=== PATIENT | female | born 1985 | race Caucasian/White ===

== ENCOUNTER 2016-03-14 02:00 | Inpatient (IN) | payer BC ==
[~2016-03-14] VITALS: Ht 162.6 cm; Wt 72.7 kg
[~2016-03-14 02:00] MED LIST: PRENTAB26 PO
[2016-03-14] MEDS ORDERED: LACTATED RINGER'S 1000ML 1,000 ML IV SCH (02:32)
[2016-03-14] MEDS ORDERED: LACTATED RINGER'S 1000ML 1,000 ML IV PRN (02:32)
[2016-03-14] MEDS ORDERED: PENICILLIN G POTASSIUM IV 6 MU in DEXTROSE 5% 250ML 250 ML IV ONE (02:45)
[2016-03-14] MEDS ORDERED: PENICILLIN G POTASSIUM IV 3 MU in DEXTROSE 5% 100ML 100 ML IV PRN (02:45)
[2016-03-14 02:52] LABS: HEMATOCRIT 33.7 % (37-47); MEAN CELL VOLUME 97.4 fL (80-100); MEAN CORPUSCULAR HEMOGLOBIN 34.7 pg (25-34); MEAN CORPUSCULAR HGB CONC 35.6 g/dl (32-36); MEAN PLATELET VOLUME 11.2 fL (7.4-10.4); PLATELET COUNT 131 K/uL (130-400); RED BLOOD COUNT 3.46 M/uL (4.2-5.4); WHITE BLOOD COUNT 9.98 K/uL (4.8-10.8)
[2016-03-14] MEDS ORDERED: EpHEDrine SULFATE INJ 50 MG/ML AMP ONE (03:27)
[2016-03-14] MEDS ORDERED: BUPIVACAINE 0.25% 30 ML VIAL ONE (03:27)
[2016-03-14] MEDS ORDERED: FENTANYL 2MCG/ML ROPIV 1.25MG/ML 100ML BAG EPI ONE (03:27)
[2016-03-14] MEDS ORDERED: FENTANYL CITRATE INJ 50 MCG/1 ML 2 ML VIAL ONE (03:28)
[2016-03-14] MEDS ORDERED: NALOXONE HCL INJ 1 MG in SODIUM CHLORIDE 0.9% 1000ML 1,000 ML IV PRN (04:22)
[2016-03-14] MEDS ORDERED: LACTATED RINGER'S 1000ML 500 ML IV PRN ×2 (04:22→05:30)
[2016-03-14] MEDS ORDERED: NALOXONE HCL INJ 0.4 MG/1 ML VIAL/CARP IV PRN (04:30)
[2016-03-14] MEDS ORDERED: FENTANYL 2MCG/ML ROPIV 1.25MG/ML 100ML BAG EPI PRN (04:30)
[2016-03-14] MEDS ORDERED: NALBUPHINE HCL INJ 10 MG/ML AMP IV PRN (04:30)
[2016-03-14] MEDS ORDERED: ONDANSETRON INJ 2 MG/ML 2 ML VIAL IV PRN (04:30)
[2016-03-14] MEDS ORDERED: EpHEDrine SULFATE INJ 50 MG/ML AMP IV PRN (04:30)
[2016-03-14] MEDS ORDERED: DiphenhydrAMINE HCL 50 MG/ML VIAL IV PRN (04:30)
[2016-03-14 05:05] VITALS: Ht 162.6 cm; Wt 72.7 kg
[2016-03-14] MEDS ORDERED: OXYTOCIN 30 UNITS/500ML NSS IV PRN ×2 (05:30→09:45)
--- NOTE | 2016-03-14 05:41 | HISTORY & PHYSICAL EXAMINATION ---
DATE OF ADMISSION: 03/14/2016 HISTORY OF PRESENT ILLNESS: The patient is a 30-year-old G2, P1, due date 03/23/2016, making her 38 weeks and 5 days today who presented to labor and delivery with spontaneous rupture of membranes at 1:00 a.m. on 03/14/2016. On arrival at labor and delivery, she has no shortness of breath, no chills, no fever and she is grossly ruptured. Bedside ultrasound shows a cephalic presentation. The patient is 3 cm dilated, 90% effaced and -2. She has irregular contractions. COURSE: Has been unremarkable. LABS: Blood type O positive, antibody negative, rubella immune, RPR nonreactive. Positive GBS. PAST MEDICAL HISTORY: History of asthma and seasonal allergies. PAST SURGICAL HISTORY: History of dental surgery. ALLERGIES: No known drug allergies. SOCIAL HISTORY: The patient denies tobacco, drug or alcohol use. FAMILY HISTORY: Noncontributory. OBSTETRICAL AND GYNEC OLOGICAL HISTORY: The patient delivered a at 36 weeks in October of 2013. PHYSICAL EXAMINATION: GENERAL: Well-developed, well-nourished white female, in no acute distress. HEART: S1, S2, regular rhythm and rate. LUNGS: Clear to auscultation bilaterally. ABDOMEN: Gravid. PELVIC: 3 cm, 80% effaced and -2. Bedside ultrasound shows a cephalic presentation. EXTREMITIES: No cyanosis, clubbing or edema. ASSESSMENT AND PLAN: A 30-year-old G2, P1 at 38-5/7 weeks with term premature rupture of membranes. The patient is admitted. Plan is to anticipate vaginal delivery. The patient has a positive GBS. She therefore will be given antibiotic prophylaxis.
[2016-03-14] MEDS ORDERED: OXYCODONE/ACETAMINOPHEN 5-325 TAB PO PRN (09:45)
[2016-03-14] MEDS ORDERED: ACETAMINOPHEN/CODEINE 300/30MG TAB PO PRN ×2 (09:45)
[2016-03-14] MEDS ORDERED: DIPHTHERIA/TETANUS/PERTUSSIS 0.5 ML SYR/VIAL IM. ONE (09:45)
[2016-03-14] MEDS ORDERED: ACETAMINOPHEN 325 MG TAB PO PRN (09:45)
[2016-03-14] MEDS ORDERED: BENZOCAINE 20% AER SPR 82.5 GM CAN EXT PRN (09:45)
[2016-03-14] MEDS ORDERED: SUPERCREAM 0.870 % 15GM JAR EXT PRN (09:45)
[2016-03-14] MEDS ORDERED: LANOLIN OINT EXT PRN ×2 (09:45)
[2016-03-14] MEDS ORDERED: HYDROCORTISONE ACETATE 25 MG SUPP PR PRN (09:45)
--- NOTE | 2016-03-14 10:34 | DELIVERY SUMMARY ---
DATE OF OPERATION: 03/14/2016 DATE OF DELIVERY: 03/14/2016 TIME OF DELIVERY: 9:18 a.m. DELIVERY OF PLACENTA: 9:19 a.m. DELIVERY NOTE: The patient is a 30-year-old 2 para 1 at 38 weeks and 5 days gestation, who was admitted to labor and delivery with spontaneous rupture of membranes at 1:00 a.m. on 03/14/2016. On arrival she was found to be 3 cm, 70% effaced and -3 station with clear amniotic fluid noted. She received an epidural for anesthesia. She reached complete dilation at 8:51 a.m. with urge to push. The patient pushed to delivery at 9:18 a.m. She delivered a viable female infant to an intact perineum in the left occiput anterior position. Nuchal cord x1 was reduced at delivery. The baby was delivered and placed on the patient's abdomen. The cord was clamped x2 and cut. Apgars were 8 at 1 minute and 9 at 5 minutes. Please see nursing notes for further baby assessment. Cord blood was then obtained and intact placenta with 3-vessel cord was delivered at 9:19. Oxytocin infusion was then begun. The lower uterine segment and vagina was cleared of any trailing membranes and debris. Exploration of the perineum noted at right paraurethral laceration which was repaired with 3-0 Vicryl in a continuous running fashion. Excellent hemostasis was noted. No other lacerations were seen. One sharp was removed from the operative field. All sponge and instrument counts were found to be correct x2. Estimated blood loss was 300 mL. Both patient and baby tolerated the delivery well and were in recovery with stable vital signs. I attest to the content of the Intraoperative Record and any orders documented therein. Any exceptio ns are noted below.
[2016-03-14 13:10] VITALS: BP 117/67; PULSE 78; TEMP 36.8
--- NOTE | 2016-03-14 14:27 | Anesthesia Procedure Note ---
Anesthesia Epidural Removal Nt Date & Time Mar 14, 2016 at 14:27 Vital Signs Pain Intensity: 0.0 Vital Signs Past 12 Hours Date Time Temp Pulse Resp B/P Pulse Ox O2 Delivery O2 Flow Rate FiO2 03/14/16 13:10 Room Air 03/14/16 13:10 36.8 78 20 117/67 Room Air Notes Mental Status: alert / awake / arousable, participated in evaluation Nausea / Vomiting: adequately controlled Pain: adequately controlled Airway Patency, RR, SpO2: stable & adequate BP & HR: stable & adequate Hydration State: stable & adequate Neuraxial Anesthesia: was administered Anesthetic Complications: no major complications apparent, pt satisfied with anesthetic care Epidural: removed without complications, with tip intact
[2016-03-14 15:55] VITALS: BP 111/69; PULSE 73; TEMP 36.7
[2016-03-14] MEDS: IBUPROFEN 600 MG TAB PO PRN ×2 (16:11→20:29)
[2016-03-14 19:05] VITALS: BP 115/78; PULSE 79; TEMP 36.6
[2016-03-14] MEDS: DOCUSATE SODIUM 100 MG CAP PO SCH (20:27)
[2016-03-14 23:45] VITALS: BP 99/61; PULSE 72; TEMP 36.9
[2016-03-15 03:55] VITALS: BP 96/57; PULSE 67; TEMP 36.8
[2016-03-15] MEDS: IBUPROFEN 600 MG TAB PO PRN ×4 (06:25→20:19)
[2016-03-15 06:52] LABS: HEMATOCRIT 32.4 % (37-47)
[2016-03-15 07:30] VITALS: BP 106/61; PULSE 62; TEMP 36.6; O2SAT 99
[2016-03-15] MEDS: FERROUS SULFATE 325 MG TAB PO SCH (09:01)
[2016-03-15] MEDS: DOCUSATE SODIUM 100 MG CAP PO SCH ×2 (09:01→20:15)
[2016-03-15] MEDS: PRENATAL VITAMIN TAB PO SCH (09:01)
[2016-03-15 15:55] VITALS: BP 108/66; PULSE 68; TEMP 36.7; O2SAT 98
[2016-03-15] MEDS ORDERED: BISACODYL 5 MG TABEC PO SCH (20:00)
[2016-03-16 00:10] VITALS: BP 105/54; PULSE 61; TEMP 36.8
[2016-03-16] MEDS: IBUPROFEN 600 MG TAB PO PRN ×2 (06:14→10:41)
[2016-03-16 06:46] LABS: HEMATOCRIT 32.4 % (37-47); MEAN CORPUSCULAR HEMOGLOBIN 34.6 pg (25-34); MEAN CORPUSCULAR HGB CONC 34.6 g/dl (32-36); MEAN PLATELET VOLUME 11.2 fL (7.4-10.4); PLATELET COUNT 122 K/uL (130-400); RED BLOOD COUNT 3.24 M/uL (4.2-5.4)
[2016-03-16] MEDS ORDERED: BISACODYL 10 MG SUPP PR PRN (07:00)
[2016-03-16 07:30] VITALS: BP 95/57; PULSE 52; TEMP 36.3
[2016-03-16] MEDS: DOCUSATE SODIUM 100 MG CAP PO SCH (08:55)
[2016-03-16] MEDS: FERROUS SULFATE 325 MG TAB PO SCH (08:55)
[2016-03-16] MEDS: PRENATAL VITAMIN TAB PO SCH (08:55)
[2016-03-16] MEDS ORDERED: MTR600X PO (09:31)
--- NOTE | 2016-03-16 09:32 | Discharge Instructions ---
Discharge Instructions Admission Reason for Admission: Check Ruptured Membranes Discharge Discharge Diagnosis / Problem: Vaginal Delivery Discharge Goals Goal(s): Routine recovery after delivery Medications Continue Dispensed Medications: supercream, dermaplast, tucks, lansinoh Activity Recommendations Activity Limitations: per Instructions/Follow-up section . Instructions / Follow-Up Instructions / Follow-Up ACTIVITY RECOMMENDATIONS: * Gradual return to full activity over the next 2-3 weeks. * No lifting - nothing heavier than baby over the next 2-3 weeks. * Do not engage in vigorous exercise, sexual activity or sports until cleared by your physician. * Do not drive or operate any motorized equipment until cleared by your physician. * You may shower/bathe daily. BREAST CARE: If you are not breast feeding: * Wear a supportive bra 24 hours a day for one to two weeks. * Avoid stimulating your breasts and nipples as much as possible during the first few weeks after delivery. * When taking a shower, have the warm water hit your back, not breasts. * When your breasts feel full, apply ice packs. Usually three to four times a day helps ease the discomfort. * Take a mild pain medication (Tylenol/Motrin) when you are uncomfortable. If breast feeding: * Use breast milk to lubricate nipples. Lansinoh cream may be used for sore nipples. You do not need to remove cream prior to breast feeding. If using a different brand of cream, check the label for directions regarding removal of cream prior to nursing. * Wear a supportive bra. * If having problems with breasts or breast feeding, call a home energy consultant supervisor or your health care provider. EPISIOTOMY CARE: After delivery, if you have an episiotomy (stitches), the following steps will ease discomfort and aid healing. * For the first 24 hours after delivery, place ice packs next to your episiotomy to help reduce swelling. * After the first 24 hour-period, sitz baths, either portable or in the tub, are suggested. A shower with a shower arm sprayed over the episiotomy may be comforting. * Samaria care should be done after each voiding and bowel movement. Squirt warm water from a plastic bottle over the perineum (region of the body between the anus and urinary opening) and pat dry. * Use Dermoplast to ease discomfort. Shake container. [place] directly over the episiotomy. * Place a Tucks on a clean sanitary pad next to your episiotomy. OVER THE COUNTER MEDICATION: * For discomfort or pain, you may use Acetaminophen (Tylenol), Ibuprofen (Advil ), or Naproxen (Aleve) following the package directions. * For constipation you may use Colace following the package directions. SPECIAL CARE INSTRUCTIONS: When you are discharged from the hospital, it is important for you to follow the instructions listed below: * During the first week at home, you should be able to care for yourself and your baby. In addition, the usual light household activities are encouraged. * Limit your activities to the way you feel. Do not try to clean the house or move furniture. Be sensible. * If you actively engage in sports and have done so up until the time of your delivery, you may resume these activities as soon as you feel able. This may take up to one month or even longer. Use good judgment. * Continue to take your vitamins for at least six weeks after the of your baby. * Your diet need not be limited unless you were on a special diet before your delivery. Breast-feeding mothers need around 2500 calories per day and at least 64-80 ounces of fluid per day (8 to 10 glasses). * You should eat foods from the four major food groups. Crash diets or fad diets are to be avoided. Eating lean meats, fresh fruits and vegetables, low-fat dairy products, high fiber foods and a regular exercise program, will help you get back to your pre- weight without putting your health at risk. * Constipation is sometimes a problem after delivery. Take a mild laxative as needed. If breast feeding, Milk of Magnesia is acceptable to use. You may use a suppository or Fleets enema if no episiotomy. * A daily shower or tub bath is suggested. Be sure to thoroughly and gently dry the perineum. * A bloody vaginal discharge will usually continue until around four weeks post . A small amount of bleeding may continue for as long as six weeks. Vaginal discharge changes from the bright red bleeding after delivery to pink then brownish and finally yellowish-pink before becoming white and disappearing. * Bleeding may increase with activity. Your first period may come in 4-8 weeks. If you are breast feeding, your period may be delayed even longer. * Maribel (sex) can begin whenever both you and your partner feel comfortable and do not have any form of genital infection. It is recommended that you wait until after your return appointment and discuss with your physician. If you have questions, please talk to your health care practitioner. A condom should be used to prevent infection and . * Foreplay, gentle intercourse and lubrication is very important the first several times to prevent pain. A water-based lubricant such as K-Y jelly or Astroglide may be used. * Tampons may be used six weeks after delivery. * Douching should be avoided for 6 weeks after delivery. * If you have RH negative blood and your baby is RH positive, you will receive RHOGAM by injection prior to discharge. The nurse will give you a card to keep with you that has the date and place that you received RHOGAM after delivery. * During your care, you had a Rubella screen done to check for the presence of rubella antibodies in your blood. If your test was negative, you will receive a Rubella vaccine prior to discharge. This vaccine may cause a fever, soreness at the injection site and flu-like symptoms. If these symptoms persist, notify your health care practitioner. is not advised for three months after a Rubella vaccine. There is a higher chance of having a baby with defects if conceived within three months of getting the vaccine. * If you were discharged 24 hours from delivery or before 48 hours: Visiting nurses will come to your home 48 hours after discharge to assess you and your baby. The visiting nurse will meet with you while you are in the hospital to arrange a time and get directions to your home. * Verbalizes understanding of car seat law as reviewed with patient nursing. * Car Seat hand-out given and reviewed with patient by nursing. * Shaken baby information reviewed with patient by nursing. Call you doctor if: * Heavy bleeding (saturating several pads an hour) or passing clots the size of your fist. * A fever >101 degrees F (38.3 degrees C) on two occasions four hours apart and/or chills. * Unusual pain in the pelvic or vaginal areas. * "Baby Blues" lasting longer than two weeks. If you have any questions or concerns, call your health care practitioner at . FOLLOW-UP VISIT: * Please call the office at to schedule a 6 week examination. It is important you keep this appointment. * It is important for you to make arrangements for either yearly or twice yearly check-ups thereafter. Current Hospital Diet Patient's current hospital diet: Regular OB Diet Discharge Diet Recommended Diet: Regular OB Diet Pending Studies Studies pending at discharge: no Medical Emergencies . Who to Call and When: Medical Emergencies: If at any time you feel your situation is an emergency, please call 911 immediately. . Non-Emergent Contact Non-Emergency issues call your: Primary Care Provider, Criminal Justice Department Chair . . "Provider Documentation" section prepared by Craig Marrero. VTE Core Measure Inpt VTE Proph given/why not?: Treatment not indicated
--- NOTE | 2016-03-16 09:35 | OB/GYN Progress Note ---
[employer] HEL[employer] Progress Note Date of Service Mar 16, 2016. Subjective conversation w/ patient Ambulation: ambulating normally Voiding: no voiding problems Passing Gas: Yes Diet Tolerance: Regular Diet Lochia: Moderate Feeding Type: Breast Feeding Pain: 03/15 Notes: Doing well, no concerns. Pain well controlled. Has right sided rib pain, most likely musculoskeletal pain from delivery. Using heating pad and motrin with good relief. Would like to go home today. Objective Vital Signs Date Time Temp Pulse Resp B/P Pulse Ox O2 Delivery O2 Flow Rate FiO2 03/16/16 07:30 36.3 52 18 95/57 Room Air 03/16/16 07:30 Room Air 03/16/16 00:10 36.8 61 16 105/54 03/16/16 00:10 Room Air 03/15/16 15:55 36.7 68 18 108/66 98 Room Air 03/15/16 15:55 98 Room Air Physical Exam General Appearance: WELL-APPEARING Respiratory/Chest: chest non-tender, lungs clear Cardiovascular: regular rate, rhythm Abdomen: normal bowel sounds, soft Fundus: Firm Extremities: normal range of motion, non-tender, no calf tenderness Laboratory Results Last 24 Hours Test 03/16/16 06:21 White Blood Count 11.50 K/uL Red Blood Count 3.24 M/uL Hemoglobin 11.2 g/dL Hematocrit 32.4 % Mean Corpuscular Volume 100.0 fL Mean Corpuscular Hemoglobin 34.6 pg Mean Corpuscular Hemoglobin Concent 34.6 g/dl RDW Standard Deviation 49.2 fL RDW Coefficient of Variation 13.5 % Platelet Count 122 K/uL Mean Platelet Volume 11.2 fL Assessment and Plan Post- Day Number: 2 Continue Routine Care: -D/C home today -F/U in 6 weeks.
[2016-03-16 12:15] VITALS: BP_DIAS 57; PULSE 52; TEMP 36.3
== END 2016-03-16 12:22 | disposition home or self-care (01) | DRG 775 ==
LOC: C.OPB 02:00 → C.LD 02:00 → C.OPB 02:33 → C.OBG 12:55
PROVIDERS: ADMIT Obstetrics & Gynecology; ATTEND Obstetrics & Gynecology
PROC: 0UQMXZZ Repair Vulva, External Approach (ICD-10-PCS; principal; 2016-03-14)
PROC: 10E0XZZ Delivery of Products of Conception, External Approach (ICD-10-PCS; principal; 2016-03-14)
DX: O42.02 Full-term premature rupture of membranes, onset of labor within 24 hours of rupture (principal); Z37.0 Single live birth; O99.52 Diseases of the respiratory system complicating childbirth; O71.82 Other specified trauma to perineum and vulva; J45.909 Unspecified asthma, uncomplicated; J30.2 Other seasonal allergic rhinitis; O69.81X0 Labor and delivery complicated by cord around neck, without compression, not applicable or unspecified; O99.824 Streptococcus B carrier state complicating childbirth; Z3A.38 38 weeks gestation of pregnancy; Z79.899 Other long term (current) drug therapy